=== PATIENT | male | born 2000 | race Caucasian/White ===

== ENCOUNTER 2020-04-11 12:56 | Emergency (ER) | payer OTHER ==
[~2020-04-11] VITALS: Ht 167.6 cm; Wt 50.8 kg
[2020-04-11] MEDS ORDERED: ONDANSETRON ODT8 MG PO (15:05)
[2020-04-11] MEDS ORDERED: OMEPRAZOLE20 MG PO (15:05)
== END 2020-04-11 15:10 | disposition home or self-care (01) ==
LOC: ED 12:56
DX: R10.13 Epigastric pain (principal); G43.909 Migraine, unspecified, not intractable, without status migrainosus
CPT/HCPCS: 80053; 83690; 85025; 96361; 96374; 96375; 99284-25; C9113; J2405; J7030

== ENCOUNTER 2020-10-14 12:57 | Emergency (ER) | payer OTHER ==
[~2020-10-14] VITALS: Ht 167.6 cm; Wt 52.2 kg
[~2020-10-14 12:57] MED LIST: OMEPRAZOLE20 MG PO; ONDANSETRON ODT8 MG PO
[2020-10-14] MEDS ORDERED: SUMATRIPTAN SUC50 MG PO (13:11)
[2020-10-14] MEDS ORDERED: PENICILLIN V P500 MG PO (13:20)
== END 2020-10-14 13:28 | disposition home or self-care (01) ==
LOC: ED 12:57
DX: K01.1 Impacted teeth (principal); G43.909 Migraine, unspecified, not intractable, without status migrainosus; Z79.899 Other long term (current) drug therapy
CPT/HCPCS: 99282

== ENCOUNTER 2021-05-18 07:39 | Emergency (ER) | payer OTHER ==
[~2021-05-18] VITALS: Ht 167.6 cm; Wt 63.5 kg
[~2021-05-18 07:39] MED LIST changes: +PENICILLIN V P500 MG PO; +SUMATRIPTAN SUC50 MG PO
[2021-05-18] MEDS ORDERED: ENULOSE10 GM/15 M PO (09:16)
== END 2021-05-18 09:39 | disposition home or self-care (01) ==
LOC: ED 07:39
DX: R10.30 Lower abdominal pain, unspecified (principal); G43.909 Migraine, unspecified, not intractable, without status migrainosus; Z79.899 Other long term (current) drug therapy
CPT/HCPCS: 74022; 81001; 99284-25

== ENCOUNTER 2022-08-15 22:28 | Emergency (ER) | payer OTHER ==
[~2022-08-15] VITALS: Ht 167.6 cm; Wt 33.9 kg
[~2022-08-15 22:28] MED LIST changes: +ENULOSE10 GM/15 M PO
== END 2022-08-15 22:55 | disposition home or self-care (01) ==
LOC: ED 22:28
DX: H60.92 Unspecified otitis externa, left ear (principal)
CPT/HCPCS: 99282

== ENCOUNTER 2023-10-27 21:04 | Emergency (ER) | payer OTHER ==
[~2023-10-27] VITALS: Ht 167.6 cm; Wt 80.0 kg
[~2023-10-27 21:04] MED LIST changes: +BETAMETHASONE D15 G3 TOP
[2023-10-27] MEDS ORDERED: TRIAMCINOLONE A15 G3 TOP (21:19)
[2023-10-27 21:35] VITALS: BP 130/74
== END 2023-10-27 21:35 | disposition home or self-care (01) ==
LOC: ED 21:04
DX: L25.9 Unspecified contact dermatitis, unspecified cause (principal); G43.909 Migraine, unspecified, not intractable, without status migrainosus
CPT/HCPCS: 96372; 99282